=== PATIENT | female | born 1980 | race Caucasian/White ===

== ENCOUNTER 2016-11-10 21:13 | Emergency (ER) | payer OTHER ==
[~2016-11-10] VITALS: Ht 162.6 cm; Wt 66.9 kg
[~2016-11-10 21:13] MED LIST: MULT-506 PO
[2016-11-10 21:15] VITALS: TEMP 37.1; Ht 162.6 cm; Wt 66.9 kg
[2016-11-10 23:02] LABS: BASO % 0.4 %; BASO ABS # 0.03 K/uL (0-0.2); COMPLETE YES; EOS % 2.9 %; IG% 0.1 %; LYMPH % 36.5 %; LYMPH ABS # 2.81 K/uL (1.2-3.4); MEAN CELL VOLUME 87.8 fL (80-100); MEAN CORPUSCULAR HGB CONC 34.1 g/dl (32-36); MONO % 8.4 %; NEUT % 51.7 %; PLATELET COUNT 265 K/uL (130-400); RED BLOOD COUNT 4.67 M/uL (4.2-5.4)
[2016-11-10 23:06] VITALS: O2SAT 100
[2016-11-10 23:11] LABS: PARTIAL THROMBOPLASTIN RATIO 1.1; PROTHROMBIN TIME (PATIENT) 10.4 SECONDS (9.0-12.0)
--- NOTE | 2016-11-10 23:16 | EMERGENCY ROOM VISIT NOTE ---
History Report prepared by Aydin: Pura Serrano Under the Supervision of: Dr. Garcia Barnett M.D. First contact with patient: 22:27 Chief Complaint: VAGINAL DISCHARGE Stated Complaint: 12 WKS PREG,PAIN W/DISCHARGE History of Present Illness The patient is a 36 year old female who presents to the Emergency Room with complaints of intermittent vaginal discharge for the past 3 days. The patient is /A0. She is currently 12 weeks and has not yet had an ultrasound to confirm the baby's location. She has an appointment with her management instructor next week. Two days ago she developed brown vaginal discharge without any pelvic pain. Yesterday she continued to have painless brown discharge. Today she developed intermittent sharp pelvic pain and red vaginal discharge. She rates her pain as a 4/10 in severity. Source of History: patient Onset: 3 days ago Position: other (vagina) Symptom Intensity: 4/10 Quality: other (bleeding) Timing: intermittent Associated Symptoms: + abdominal pain Review of Systems See HPI for pertinent positives & negatives. A total of 10 systems reviewed and were otherwise negative. Past Medical & Surgical Medical Problems: (1) Deliver-Single Liveborn (2) No Known Active Medical Problems Family History No pertinent family history Social History Smoking Status: Never Smoker Marital Status: Housing Status: lives with family Current/Historical Medications Scheduled Multivitamin (Multivitamin), 1 TAB PO DAILY Allergies Coded Allergies: No Known Allergies (Unverified , 11/10/16) Physical Exam Vital Signs Date Time Temp Pulse Resp B/P Pulse Ox O2 Delivery O2 Flow Rate FiO2 11/11/16 01:38 72 20 115/74 98 11/10/16 23:44 73 11/10/16 23:38 69 22 111/68 100 Room Air 11/10/16 23:06 100 Room Air 11/10/16 21:15 37.1 87 20 149/95 100 Room Air Physical Exam GENERAL: Patient is a healthy-appearing well-nourished 36 year old female. HEAD: Normocephalic atraumatic EYES: Ocular movements intact pupils equal and react to light OROPHARYNX mucous membranes are moist no exudates present no erythema or edema present NECK: Supple no nuchal rigidity CHEST: Good equal expansion LUNGS: Clear and equal to auscultation CARDIAC: Normal S1 and S2 ABDOMEN: Soft nontender no guarding BACK: No CVA tenderness EXTREMITIES: No pain upon palpation normal muscle strength in all groups no clubbing cyanosis or edema NEURO: Patient is following commands is answering questions appropriately. Alert and oriented x3 Cranial Nerves 2-12 grossly intact Medical Decision & Procedures ER Provider Diagnostic Interpretation: FIRST TRIMESTER OBSTETRICAL ULTRASOUND. CLINICAL HISTORY: and vaginal bleeding COMPARISON STUDY: No previous studies for comparison. FINDINGS: The patient refused endovaginal scanning. The maternal ovaries were unremarkable in appearance.] Intrauterine gestation was visualized in the crown-rump length of 15 mm. This corresponds to an estimated postmenstrual age of 7 weeks and 6 days. No cardiac activity was demonstrated. Unfortunately patient refused endovaginal scanning. The findings may indicate demise. An endovaginal scan or follow-up transabdominal scan but the considered for confirmation. There is a tiny subchorionic hematoma. IMPRESSION: Intrauterine gestation with estimated postmenstrual age of 7 weeks and 6 days. No cardiac activity was identified on transabdominal scanning. This may indicate demise. An endovaginal scan, or follow-up transabdominal scan may be considered for confirmation. Electronically signed by: Trevor Rodriguez M.D. 11/11/2016 6:54 AM Dictated Date/Time: 11/11/2016 6:51 AM Laboratory Results 11/10/16 22:48 Red Blood Count 4.67, Mean Corpuscular Volume 87.8, Mean Corpuscular Hemoglobin 30.0, Mean Corpuscular Hemoglobin Concent 34.1, Mean Platelet Volume 10.0, Neutrophils (%) (Auto) 51.7, Lymphocytes (%) (Auto) 36.5, Monocytes (%) (Auto) 8.4, Eosinophils (%) (Auto) 2.9, Basophils (%) (Auto) 0.4, Neutrophils # (Auto) 3.98, Lymphocytes # (Auto) 2.81, Monocytes # (Auto) 0.65, Eosinophils # (Auto) 0.22, Basophils # (Auto) 0.03 11/10/16 22:48 Test 11/10/16 21:30 11/10/16 22:28 11/10/16 22:48 Urine Color YELLOW Urine Appearance TURBID (CLEAR) Urine pH 8.5 (4.5-7.5) Urine Specific [place] 1.012 (1.000-1.030) Urine Protein NEG (NEG) Urine Glucose (UA) NEG (NEG) Urine Ketones NEG (NEG) Urine Occult Blood 3+ (NEG) Urine Nitrite NEG (NEG) Urine Bilirubin NEG (NEG) Urine Urobilinogen NEG (NEG) Urine Leukocyte Esterase TRACE (NEG) Urine WBC (Auto) 1-5 /hpf (0-5) Urine RBC (Auto) >30 /hpf (0-4) Urine Hyaline Casts (Auto) 1-5 /lpf (0-5) Urine Epithelial Cells (Auto) >30 /lpf (0-5) Urine Bacteria (Auto) NEG (NEG) Urine Test POS (NEG) White Blood Count 7.70 K/uL (4.8-10.8) Red Blood Count 4.67 M/uL (4.2-5.4) Hemoglobin 14.0 g/dL (12.0-16.0) Hematocrit 41.0 % (37-47) Mean Corpuscular Volume 87.8 fL (80-100) Mean Corpuscular Hemoglobin 30.0 pg (25-34) Mean Corpuscular Hemoglobin Concent 34.1 g/dl (32-36) Platelet Count 265 K/uL (130-400) Mean Platelet Volume 10.0 fL (7.4-10.4) Neutrophils (%) (Auto) 51.7 % Lymphocytes (%) (Auto) 36.5 % Monocytes (%) (Auto) 8.4 % Eosinophils (%) (Auto) 2.9 % Basophils (%) (Auto) 0.4 % Neutrophils # (Auto) 3.98 K/uL (1.4-6.5) Lymphocytes # (Auto) 2.81 K/uL (1.2-3.4) Monocytes # (Auto) 0.65 K/uL (0.11-0.59) Eosinophils # (Auto) 0.22 K/uL (0-0.5) Basophils # (Auto) 0.03 K/uL (0-0.2) RDW Standard Deviation 41.0 fL (36.4-46.3) RDW Coefficient of Variation 12.8 % (11.5-14.5) Immature Granulocyte % (Auto) 0.1 % Immature Granulocyte # (Auto) 0.01 K/uL (0.00-0.02) Prothrombin Time 10.4 SECONDS (9.0-12.0) Prothromb Time International Ratio 1.0 (0.9-1.1) Activated Partial Thromboplast Time 27.5 SECONDS (21.0-31.0) Partial Thromboplastin Ratio 1.1 Anion Gap 8.0 mmol/L (3-11) Est Creatinine Clear Calc Drug Dose 124.3 ml/min Estimated GFR () 137.8 Estimated GFR (Non- 118.9 BUN/Creatinine Ratio 22.2 (10-20) Calcium Level 9.3 mg/dl (8.5-10.1) Total Bilirubin 0.3 mg/dl (0.2-1) Aspartate Amino Transf (AST/SGOT) 8 U/L (15-37) Alanine Aminotransferase (ALT/SGPT) 20 U/L (12-78) Alkaline Phosphatase 52 U/L (45-117) Total Protein 8.1 gm/dl (6.4-8.2) Albumin 4.0 gm/dl (3.4-5.0) Globulin 4.1 gm/dl (2.5-4.0) Albumin/Globulin Ratio 1.0 (0.9-2) Human Chorionic Gonadotropin, Quant 3554 mIU/mL ED Course 2227: Past medical records reviewed. The patient was evaluated in room B6. A complete history and physical examination was performed. Medical Decision Differential diagnosis: Etiologies such as ectopic , dysfunction uterine bleeding, bleeding dyscrasia, trauma, infection, as well as others were entertained. This is a 36-year-old female who presents emergency department complaining of brownish discharge that is turned to a reddish discharge today along with some suprapubic cramping. The patient believes she is 12 weeks however her beta hCG does not reflect this number. In addition there is no cardiac activity and I believe this to be a demise. The patient's blood type is positive. Serial abdominal examinations were performed of the patient and at no time did the patient exhibit surgical abdomen. Based on these findings I feel that the patient can be safely discharged home as she is not having any heavy bleeding. She does have follow-up with obstetrics this week. I contacted case management to try get the patient's appointment moved up. Patient and were in agreement with treatment plan. Impression Primary Impression: Vaginal discharge Additional Impression: Incomplete miscarriage Scribe Attestation The scribe's documentation has been prepared under my direction and personally reviewed by me in its entirety. I confirm that the note above accurately reflects all work, treatment, procedures, and medical decision making performed by me. Departure Information Dispostion Home / Self-Care Referrals No Doctor, Assigned (PCP) Patient Instructions My [facility] Problem Qualifiers
[2016-11-10 23:19] LABS: BUN/CREATININE RATIO 22.2 (10-20); CALCIUM 9.3 mg/dl (8.5-10.1); CREATININE 0.6 mg/dl (0.60-1.20); POTASSIUM 3.7 mmol/L (3.5-5.1)
[2016-11-11 00:06] LABS: MANUAL MICROSCOPIC REQUIRED? NO; REVIEW REQ? NO; URINE APPEARANCE TURBID (CLEAR); URINE BILIRUBIN NEG (NEG); URINE COLOR YELLOW; URINE EPITHELIAL CELL AUTO >30 /lpf (0-5); URINE NITRITE NEG (NEG); URINE PH 8.5 (4.5-7.5); URINE SPECIFIC GRAVITY 1.012 (1.000-1.030); UROBILINOGEN NEG (NEG)
[2016-11-11 01:38] VITALS: BP 115/74; PULSE 72; O2SAT 98
--- NOTE | 2016-11-11 06:55 | DIAGNOSTIC IMAGING REPORT ---
FIRST TRIMESTER OBSTETRICAL ULTRASOUND. CLINICAL HISTORY: and vaginal bleeding COMPARISON STUDY: No previous studies for comparison. FINDINGS: The patient refused endovaginal scanning. The maternal ovaries were unremarkable in appearance.] Intrauterine gestation was visualized in the crown-rump length of 15 mm. This corresponds to an estimated postmenstrual age of 7 weeks and 6 days. No cardiac activity was demonstrated. Unfortunately patient refused endovaginal scanning. The findings may indicate demise. An endovaginal scan or follow-up transabdominal scan but the considered for confirmation. There is a tiny subchorionic hematoma. IMPRESSION: Intrauterine gestation with estimated postmenstrual age of 7 weeks and 6 days. No cardiac activity was identified on transabdominal scanning. This may indicate demise. An endovaginal scan, or follow-up transabdominal scan may be considered for confirmation. Electronically signed by: Trevor Rodriguez M.D. 11/11/2016 6:54 AM Dictated Date/Time: 11/11/2016 6:51 AM
== END 2016-11-11 01:42 | disposition home or self-care (01) ==
LOC: C.EDB 21:14
DX: O03.4 Incomplete spontaneous abortion without complication (principal); Z3A.01 Less than 8 weeks gestation of pregnancy

== ENCOUNTER 2016-11-12 01:44 | Emergency (ER) | payer OTHER ==
[~2016-11-12] VITALS: Ht 160 cm; Wt 60.0 kg
[2016-11-12 01:47] VITALS: Ht 160 cm; Wt 60.0 kg
[2016-11-12 02:00] VITALS: TEMP 36.9
[2016-11-12 02:10] VITALS: O2SAT 98
[2016-11-12] MEDS ORDERED: ONDANSETRON INJ 2 MG/ML 2 ML VIAL IV STA (02:19)
[2016-11-12] MEDS ORDERED: MoRPHine SULFATE 4 MG/ML 1 ML CARP\\VIAL IV STA (02:19)
[2016-11-12] MEDS ORDERED: SODIUM CHLORIDE 0.9% 1000ML 2,000 ML IV STA (02:19)
[2016-11-12 02:42] LABS: BASO % 0.4 %; BASO ABS # 0.04 K/uL (0-0.2); COMPLETE YES; HEMATOCRIT 35.8 % (37-47); IG% 0.1 %; LYMPH % 35.7 %; LYMPH ABS # 3.51 K/uL (1.2-3.4); MEAN CELL VOLUME 85.6 fL (80-100); MEAN CORPUSCULAR HEMOGLOBIN 29.2 pg (25-34); MEAN CORPUSCULAR HGB CONC 34.1 g/dl (32-36); MEAN PLATELET VOLUME 9.8 fL (7.4-10.4); MONO % 8.1 %; NEUT % 53.7 %; PLATELET COUNT 249 K/uL (130-400); RED BLOOD COUNT 4.18 M/uL (4.2-5.4); WHITE BLOOD COUNT 9.84 K/uL (4.8-10.8)
[2016-11-12 02:57] LABS: PARTIAL THROMBOPLASTIN RATIO 0.9; PROTHROMBIN TIME (PATIENT) 10.8 SECONDS (9.0-12.0)
[2016-11-12 03:02] LABS: BUN/CREATININE RATIO 18.1 (10-20); CALCIUM 8.9 mg/dl (8.5-10.1); CREATININE 0.74 mg/dl (0.60-1.20); POTASSIUM 3.4 mmol/L (3.5-5.1)
[2016-11-12 03:04] LABS: ALB/GLOB RATIO 1.1 (0.9-2)
--- NOTE | 2016-11-12 04:32 | EMERGENCY ROOM VISIT NOTE ---
History First contact with patient: 02:01 Chief Complaint: ED VAG BLEEDING Stated Complaint: MISCARRAGE History of Present Illness The patient is a 36 year old female who presents to the Emergency Room with complaints of heavy vaginal bleeding and pain for the past few hours was seen here yesterday for threatened miscarriage. This is the patient's seventh . She is 4 living children. She thinks she is 12 weeks along. She follows at [facility]. She is appointment today with OB. Patient states she's got to 6 pads within 2 hours. She states she had a blood sensation with her last delivery. Patient denies chest pain, dyspnea, fever, chills, cough, congestion. Patient states she feels extremely weak. Review of Systems See HPI for pertinent positives & negatives. A total of 10 systems reviewed and were otherwise negative. Past Medical/Surgical History Medical Problems: (1) Deliver-Single Liveborn (2) No Known Active Medical Problems Family History No pertinent family history Social History Smoking Status: Never Smoker Smokeless Tobacco Use: No Drug Use: none Marital Status: Housing Status: lives with family Current/Historical Medications Scheduled Multivitamin (Multivitamin), 1 TAB PO DAILY Allergies Coded Allergies: No Known Allergies (Unverified , 11/12/16) Physical Exam Vital Signs Date Time Temp Pulse Resp B/P Pulse Ox O2 Delivery O2 Flow Rate FiO2 11/12/16 03:24 74 16 93/49 97 Room Air 11/12/16 02:10 98 Room Air 11/12/16 02:09 75 11/12/16 02:00 36.9 72 22 117/72 97 Room Air 11/12/16 01:47 36.8 85 18 117/75 100 Room Air Physical Exam VITALS: Vitals are noted on the nurse's note and reviewed by myself. Vital signs stable. GENERAL: Pleasant tearful female, in no acute distress, nondiaphoretic, well- developed well-nourished. SKIN: Capillary reflex less than 2 seconds. HEENT: Normocephalic. PERRLA. EOMI. Nares patent. Mucous membranes moist. Neck is supple without nuchal rigidity. HEART: Regular rate and rhythm without murmurs gallops or rubs. LUNGS: Clear to auscultation bilaterally without wheezes, rales or rhonchi. No retractions or accessory muscle use. ABDOMEN: Positive bowel sounds x 4. Normal tympanic percussion. Soft, nontender, without masses or organomegaly. Kam sign negative. No guarding or rebound tenderness. exam: Normal external genitalia, copious metal blood in the vault with open os and products of conception present that was sent to lab for pathology. Manager Strategy & Account present. MUSCULOSKELETAL: No gross musculoskeletal defects. NEURO: Patient was alert and oriented to person place and time. Normal sensation to light and sharp touch. No focal neurological deficits. Medical Decision & Procedures Laboratory Results 11/12/16 02:00 Red Blood Count 4.18, Mean Corpuscular Volume 85.6, Mean Corpuscular Hemoglobin 29.2, Mean Corpuscular Hemoglobin Concent 34.1, Mean Platelet Volume 9.8, Neutrophils (%) (Auto) 53.7, Lymphocytes (%) (Auto) 35.7, Monocytes (%) (Auto) 8.1, Eosinophils (%) (Auto) 2.0, Basophils (%) (Auto) 0.4, Neutrophils # (Auto) 5.28, Lymphocytes # (Auto) 3.51, Monocytes # (Auto) 0.80, Eosinophils # (Auto) 0.20, Basophils # (Auto) 0.04 11/12/16 02:00 Test 11/12/16 02:00 White Blood Count 9.84 K/uL (4.8-10.8) Red Blood Count 4.18 M/uL (4.2-5.4) Hemoglobin 12.2 g/dL (12.0-16.0) Hematocrit 35.8 % (37-47) Mean Corpuscular Volume 85.6 fL (80-100) Mean Corpuscular Hemoglobin 29.2 pg (25-34) Mean Corpuscular Hemoglobin Concent 34.1 g/dl (32-36) Platelet Count 249 K/uL (130-400) Mean Platelet Volume 9.8 fL (7.4-10.4) Neutrophils (%) (Auto) 53.7 % Lymphocytes (%) (Auto) 35.7 % Monocytes (%) (Auto) 8.1 % Eosinophils (%) (Auto) 2.0 % Basophils (%) (Auto) 0.4 % Neutrophils # (Auto) 5.28 K/uL (1.4-6.5) Lymphocytes # (Auto) 3.51 K/uL (1.2-3.4) Monocytes # (Auto) 0.80 K/uL (0.11-0.59) Eosinophils # (Auto) 0.20 K/uL (0-0.5) Basophils # (Auto) 0.04 K/uL (0-0.2) RDW Standard Deviation 38.9 fL (36.4-46.3) RDW Coefficient of Variation 12.5 % (11.5-14.5) Immature Granulocyte % (Auto) 0.1 % Immature Granulocyte # (Auto) 0.01 K/uL (0.00-0.02) Prothrombin Time 10.8 SECONDS (9.0-12.0) Prothromb Time International Ratio 1.0 (0.9-1.1) Activated Partial Thromboplast Time 23.8 SECONDS (21.0-31.0) Partial Thromboplastin Ratio 0.9 Anion Gap 14.0 mmol/L (3-11) Est Creatinine Clear Calc Drug Dose 88.6 ml/min Estimated GFR () 122.5 Estimated GFR (Non- 105.7 BUN/Creatinine Ratio 18.1 (10-20) Calcium Level 8.9 mg/dl (8.5-10.1) Total Bilirubin 0.4 mg/dl (0.2-1) Aspartate Amino Transf (AST/SGOT) 9 U/L (15-37) Alanine Aminotransferase (ALT/SGPT) 19 U/L (12-78) Alkaline Phosphatase 48 U/L (45-117) Total Protein 7.4 gm/dl (6.4-8.2) Albumin 3.8 gm/dl (3.4-5.0) Globulin 3.6 gm/dl (2.5-4.0) Albumin/Globulin Ratio 1.1 (0.9-2) Human Chorionic Gonadotropin, Quant 1913 mIU/mL Medications Administered Medications (Trade) Dose Ordered Sig/Krissy Route Start Time Stop Time Status Last Admin Dose Admin Sodium Chloride (Nss 1000ml) 2,000 ml @ 999 mls/hr Q2H1M STAT IV 11/12/16 02:19 11/12/16 04:19 DC 11/12/16 02:27 999 MLS/HR Morphine Sulfate (MoRPHine SULFATE INJ) 4 mg NOW STAT IV 11/12/16 02:19 11/12/16 02:23 DC 11/12/16 02:27 4 MG Ondansetron HCl (Zofran Inj) 4 mg NOW STAT IV 11/12/16 02:19 11/12/16 02:23 DC 11/12/16 02:27 4 MG ED Course Prior records/ancillary studies reviewed. Triage Nursing notes reviewed. Additional history obtained from the family. The patient's history was concerning for vaginal bleeding and abdominal pain. Differential diagnosis: Etiologies such as threatened miscarriage, incomplete miscarriage, septic miscarriage, missed miscarriage ectopic , dysfunction uterine bleeding , bleeding dyscrasia, trauma, infection, as well as others were entertained. Physical examination: As above. Vitals signs revealed stable ER treatment provided: IV fluids, Zofran, morphine On reassessment the patient felt better. Diagnostic interpretation by me: The labs revealed the patient to the Rh A+ . CBC, coagulation studies, and chemistries were unremarkable. Quantitative hCG was 1913 which is lower from yesterday's quad Imaging studies: Ultrasound as above US OB 1st TRIMESTER: Compared to OB ultrasound 11/10/2016 No evidence of intrauterine gestation, likely due to recent spontaneous . Thickened, heterogeneous endometrium. There is a focal heterogeneously hypoechoic endometrial lesion measuring approximately 1.7 centimeters. There is abnormal endometrial vascular flow. Findings are likely due to retained products of conception. Continued followup with beta-hCG and ultrasound would be useful. The ovaries are within normal limits bilaterally. No free fluid. Radiologist: Debora Cullen M.D. Consultation: A consultation was placed with the supervisor pole yard physician, Dr Ramesh. The case was discussed and diagnostics were reviewed. He recommends discharge and follow-up today in a few hours as scheduled with OB This appears to be consistent with incomplete miscarriage. Patient was neurovascularly and neurologically intact. Stable vital signs. Stable H&H. She is an appointment in a few hours with OB. She is advised to keep this. She is advised to return to the ER me for heavy bleeding, fevers, vomiting, worsening signs or symptoms or as needed. By the evaluation outlined above emergent etiologies such as bleeding dyscrasia, ectopic , trauma, as well as others were deemed relatively unlikely. The pt informed about the findings as listed above. All questions were answered and pleased with the treatment. Return instructions were outlined and the patient was discharged in stable condition. Referral: The patient was referred to today as scheduled for follow-up for a recheck of her current condition. Medical Decision as above Impression Primary Impression: Incomplete miscarriage Departure Information Dispostion Home / Self-Care Condition GOOD Referrals Tori Baker DO (PCP) Patient Instructions My [facility] Additional Instructions Acetaminophen(Tylenol) may be used for fever or pain. Use 1000mg every six hours as needed. Avoid using more than 3000mg in a 24 hour period. Rest and drink plenty of fluids as tolerated. Continue current medications. Light activity only. Return to the ER immediately for worsening or persistent heavy vaginal bleeding , abdominal pain, vomiting, fevers, chest pains, difficulty breathing, worsening of your condition, or as needed. Follow up with today as scheduled in a few hours with your OB for a recheck of your current condition.
[2016-11-12] MEDS ORDERED: OXYCODONE IR HOME PACK PO ONE (04:45)
[2016-11-12] MEDS ORDERED: ONDANSETRON HOME PACK 4MG OD TAB PO ONE (04:45)
[2016-11-12 04:46] VITALS: BP 97/61; PULSE 79; O2SAT 100
--- NOTE | 2016-11-12 06:59 | DIAGNOSTIC IMAGING REPORT ---
PELVIC ULTRASOUND CLINICAL HISTORY: Miscarriage. Increased vaginal bleeding and cramping. COMPARISON STUDY: ultrasound November 10, 2016. TECHNIQUE: Transabdominal and transvaginal sonography of the pelvis was performed. FINDINGS: The endometrium is thickened, measuring 2.9 cm in thickness. The endometrium is heterogeneous. Within the left aspect of the endometrium within the fundus, there is a 1.7 cm complex abnormality with increased vascularity. A normal-appearing gestational sac is not identified. The appearance is changed since exam of November 10, 2016. The ovaries are sonographically normal. No free fluid was identified. Color flow is identified within each ovary. IMPRESSION: 1. Thickened endometrium containing a 1.7 cm mixed echogenicity partially cystic endometrial abnormality with the left aspect of the fundus. A normal-appearing intrauterine gestational sac is not identified and the appearance has significantly changed since exam of November 10, 2016 consistent with spontaneous . The fetus and gestational sac shown on prior exam are no longer visualized. Findings on this study suggest retained products of conception. 2. Normal sonographic appearance of the ovaries. Electronically signed by: Ezequiel Augustin M.D. 11/12/2016 6:57 AM Dictated Date/Time: 11/12/2016 6:51 AM
== END 2016-11-12 04:48 | disposition home or self-care (01) ==
LOC: C.EDB 01:45 → C.EDA 04:48
DX: O03.30 Unspecified complication following incomplete spontaneous abortion (principal)

== ENCOUNTER → 2016-11-19 | Outpatient (CLI) | payer OTHER ==
[~2016-11-19] MED LIST changes: +CYCL10TA6 PO; +OXYC-57 PO
== END | disposition home or self-care (01) ==
LOC: C.LAB1850 09:33
PROVIDERS: ATTEND Obstetrics & Gynecology
DX: O03.9 Complete or unspecified spontaneous abortion without complication (principal)

== ENCOUNTER → 2016-12-04 | Outpatient (CLI) | payer OTHER | END | disposition home or self-care (01) | LOC: C.LAB1850 12:30 | PROVIDERS: ATTEND Obstetrics & Gynecology | DX: O03.9 Complete or unspecified spontaneous abortion without complication (principal) ==

== ENCOUNTER 2017-04-12 10:09 | Emergency (ER) | payer OTHER ==
[~2017-04-12] VITALS: Ht 162.6 cm; Wt 64.4 kg
[~2017-04-12 10:09] MED LIST changes: -CYCL10TA6 PO; -OXYC-57 PO
[2017-04-12 10:26] VITALS: TEMP 36.9; Ht 162.6 cm; Wt 64.4 kg
[2017-04-12] MEDS ORDERED: CYCLOBENZAPRINE HCL 5 MG TAB PO STA (10:34)
[2017-04-12] MEDS ORDERED: IBUPROFEN 600 MG TAB PO STA (10:34)
--- NOTE | 2017-04-12 11:02 | EMERGENCY ROOM VISIT NOTE ---
History Report prepared by Aydin: Leif Du Under the Supervision of: Dr. Garcia Barnett M.D. First contact with patient: 10:30 Chief Complaint: NECK PAIN Stated Complaint: NECK PAIN History of Present Illness The patient is a 36 year old female who presents to the Emergency Room with complaints of constant neck pain that started yesterday. She rates her pain as a 6/10 in severity. The patient states that she started to experience a headache and neck pain that radiated from the back of her head to her shoulder. She reports that she has had headaches in the past, but denies any as severe as her current headache. The patient states that the pain is worsened when she turns her head to the left. She admits that she took Tylenol for her pain and states that her last dose was at 0500 this morning. The patient denies any injury or accident that could have caused this pain. Source of History: patient Onset: yesterday Position: neck Symptom Intensity: 6/10 Timing: constant Modifying Factors (Relieving): tylenol Associated Symptoms: + headache Review of Systems See HPI for pertinent positives & negatives. A total of 10 systems reviewed and were otherwise negative. Past Medical & Surgical Medical Problems: (1) Deliver-Single Liveborn (2) No Known Active Medical Problems Family History No pertinent family history Social History Smoking Status: Never Smoker Drug Use: none Marital Status: Housing Status: lives with family Current/Historical Medications Scheduled Cyclobenzaprine Hcl (Flexeril), 10 MG PO TID Scheduled PRN Oxycodone/Acetaminophen 5MG/325MG (Percocet 5MG/325MG), 1-2 TAB PO Q4H PRN for Pain Allergies Coded Allergies: No Known Allergies (Unverified , 04/12/17) Physical Exam Vital Signs Date Time Temp Pulse Resp B/P (MAP) Pulse Ox O2 Delivery O2 Flow Rate FiO2 04/12/17 11:54 72 16 127/68 98 Room Air 04/12/17 10:26 36.9 88 18 128/79 99 Room Air Physical Exam GENERAL: Patient is a healthy-appearing well-nourished 36 year old. HEAD: Normocephalic atraumatic EYES: Ocular movements intact pupils equal and react to light OROPHARYNX mucous membranes are moist no exudates present no erythema or edema present NECK: Supple no nuchal rigidity CHEST: Good equal expansion LUNGS: Clear and equal to auscultation CARDIAC: Normal S1 and S2 ABDOMEN: Soft nontender no guarding BACK: No CVA tenderness. Trapezius muscle tender. No evidence of meningitis or encephalitis. EXTREMITIES: No pain upon palpation normal muscle strength in all groups no clubbing cyanosis or edema NEURO: Patient is following commands and answering questions appropriately. Alert and oriented x3 Cranial Nerves 2-12 grossly intact Medical Decision & Procedures ER Provider Diagnostic Interpretation: CT results as stated below per my review and radiologist interpretation: C-SPINE ROUTINE 4 OR 5 VIEWS CLINICAL HISTORY: Neck pain. COMPARISON STUDY: No previous studies for comparison. FINDINGS: Alignment of the cervical spine is anatomic. Vertebral body heights are maintained. There is no fracture or suspicious lesion. Disc spaces are preserved. There is mild endplate osteophytosis at C6-C7. Facet joints are intact. Bony neural foramen are patent. IMPRESSION: 1. No cervical spine fracture. 2. Minimal endplate osteophytosis at C6-C7. Preserved disc spaces. Electronically signed by: Ezequiel Augustin M.D. 04/12/2017 11:40 AM Dictated Date/Time: 04/12/2017 11:39 AM Medications Administered Medications (Trade) Dose Ordered Sig/Krissy Route Start Time Stop Time Status Last Admin Dose Admin Ibuprofen (Motrin Tab) 600 mg NOW STAT PO 04/12/17 10:34 04/12/17 10:35 DC 04/12/17 10:34 600 MG Cyclobenzaprine HCl (Flexeril Tab) 10 mg NOW STAT PO 04/12/17 10:34 04/12/17 10:35 DC 04/12/17 10:34 10 MG ED Course 1026: Past medical records reviewed. The patient was evaluated in room B07. A complete history and physical examination was performed. 1034: Flexeril Tab 10 mg PO, Ibuprofen 600 mg PO. 1150: Upon reexamination the patient is resting comfortably. I discussed results and treatment plan with the patient. She verbalizes agreement and understanding. The patient is ready for discharge. Medical Decision The differential diagnosis includes but is not limited to: etiologies such as fracture, dislocation, neurovascular compromise, compartment syndrome, soft tissue injury, as well as others were entertained. Medication Reconciliation: I attest that I have personally reviewed the patient' s current medication list Blood Pressure Screening: Patient was found to have normal blood pressure on screening and does not require follow up. This is a 36-year-old female who presents emergency department complaining of spasm to her left neck. The patient was given ibuprofen in the emergency department along with Flexeril repeat examination revealed much improvement the patient's symptoms. I do believe that this patient can be safely discharged home she has no evidence of meningitis encephalitis on examination. I stressed the need for follow-up with orthopedics if she is continuing to have the neck pain. Patient was in agreement with the treatment plan. Medication Reconcilliation Current Medication List: was personally reviewed by me Blood Pressure Screening Patient's blood pressure: Normal blood pressure Impression Primary Impression: Muscle spasm Scribe Attestation The scribe's documentation has been prepared under my direction and personally reviewed by me in its entirety. I confirm that the note above accurately reflects all work, treatment, procedures, and medical decision making performed by me. Departure Information Dispostion Home / Self-Care Prescriptions Oxycodone/Acetaminophen 5MG/325MG (PERCOCET 5MG/325MG) Tab 1-2 TAB PO Q4H Y for Pain, #14 TAB Prov: Garcia Barnett MD 04/12/17 Cyclobenzaprine Hcl (FLEXERIL) 10 Mg Tab 10 MG PO TID, #21 TAB Prov: Garcia Barnett MD 04/12/17 Referrals No Doctor, Assigned (PCP) Forms HOME CARE DOCUMENTATION FORM, IMPORTANT VISIT INFORMATION, WORK / SCHOOL INSTRUCTIONS Patient Instructions ED Spasm Muscle, My [facility], Neck Probs Additional Instructions Follow up with DR Lo's office for continued neck pain You received narcotic or benzodiazepene medication while in the emergency room today. Do not drive, operate heavy machinery, or drink alcohol under the influence of this medication. Take 600 mg Ibuprofen every 6 hours Take Flexeril as directed Take Percocet for breakthrough pain You have been examined and treated today on an emergency basis only. This is not a substitute for, or an effort to provide, complete comprehensive medical care. It is impossible to recognize and treat all injuries or illnesses in a single emergency department visit. It is therefore important that you follow up closely with Dr Baker. Call as soon as possible for an appointment. Thank you for your time and consideration. I look forward to speaking with you again soon. Please don't hesitate to call us if you have any questions.
--- NOTE | 2017-04-12 11:41 | DIAGNOSTIC IMAGING REPORT ---
C-SPINE ROUTINE 4 OR 5 VIEWS CLINICAL HISTORY: Neck pain. COMPARISON STUDY: No previous studies for comparison. FINDINGS: Alignment of the cervical spine is anatomic. Vertebral body heights are maintained. There is no fracture or suspicious lesion. Disc spaces are preserved. There is mild endplate osteophytosis at C6-C7. Facet joints are intact. Bony neural foramen are patent. IMPRESSION: 1. No cervical spine fracture. 2. Minimal endplate osteophytosis at C6-C7. Preserved disc spaces. Electronically signed by: Ezequiel Augustin M.D. 04/12/2017 11:40 AM Dictated Date/Time: 04/12/2017 11:39 AM
[2017-04-12 11:54] VITALS: BP 127/68; PULSE 72; O2SAT 98
[2017-04-12] MEDS ORDERED: OXYC-57 PO (12:01)
[2017-04-12] MEDS ORDERED: CYCL10TA6 PO (12:01)
== END 2017-04-12 12:13 | disposition home or self-care (01) ==
LOC: C.EDB 10:10
DX: M62.838 Other muscle spasm (principal)

== ENCOUNTER 2017-08-28 13:55 | Observation (INO) | payer OTHER ==
[2017-08-28] VITALS (7 sets, daily range): BP systolic 91–122; BP diastolic 51–68; PULSE 64–81; TEMP 36.3–36.7; O2SAT 94–100; Ht 162.6 cm; Wt 64.6 kg
[~2017-08-28] VITALS: Ht 162.6 cm; Wt 64.6 kg
[~2017-08-28 13:55] MED LIST changes: -MULT-506 PO; +OXYC-57 PO
[2017-08-28] MEDS ORDERED: MoRPHine SULFATE 10 MG/ML CARP/VIAL IV STA (14:22)
[2017-08-28] MEDS ORDERED: ONDANSETRON INJ 2 MG/ML 2 ML VIAL IV STA (14:22)
[2017-08-28] MEDS ORDERED: MULT-1027 PO (14:26)
[2017-08-28] MEDS ORDERED: OPTIRAY 320 IV PRN (14:30)
[2017-08-28] MEDS ORDERED: MoRPHine SULFATE 2 MG/ML CARP ONE (14:36)
[2017-08-28] MEDS ORDERED: MoRPHine SULFATE 4 MG/ML 1 ML CARP\\VIAL ONE (14:36)
[2017-08-28 14:43] LABS: BASO % 0.3 %; BASO ABS # 0.03 K/uL (0-0.2); COMPLETE YES; EOS % 1.7 %; HEMATOCRIT 39.6 % (37-47); IG% 0.2 %; LYMPH % 24.8 %; LYMPH ABS # 2.35 K/uL (1.2-3.4); MEAN CELL VOLUME 87.2 fL (80-100); MEAN CORPUSCULAR HGB CONC 32.1 g/dl (32-36); MEAN PLATELET VOLUME 9.9 fL (7.4-10.4); MONO % 8.2 %; NEUT % 64.8 %; PLATELET COUNT 251 K/uL (130-400); RED BLOOD COUNT 4.54 M/uL (4.2-5.4); WHITE BLOOD COUNT 9.46 K/uL (4.8-10.8)
[2017-08-28 15:02] LABS: CREATININE 0.69 mg/dl (0.60-1.20)
[2017-08-28 15:03] LABS: BUN/CREATININE RATIO 13.6 (10-20); CALCIUM 9.2 mg/dl (8.5-10.1); POTASSIUM 3.9 mmol/L (3.5-5.1)
[2017-08-28 15:32] LABS: URINE APPEARANCE CLOUDY (CLEAR); URINE BILIRUBIN NEG (NEG); URINE COLOR YELLOW; URINE EPITHELIAL CELL AUTO >30 /lpf (0-5); URINE NITRITE NEG (NEG); URINE SPECIFIC GRAVITY 1.012 (1.000-1.030); UROBILINOGEN NEG (NEG); ZZUR CULT IF INDIC CLEAN CATCH NO
[2017-08-28 15:41] LABS: MANUAL MICROSCOPIC REQUIRED? NO; REVIEW REQ? NO
--- NOTE | 2017-08-28 16:57 | DIAGNOSTIC IMAGING REPORT ---
CT SCAN OF THE ABDOMEN AND PELVIS WITH IV CONTRAST CLINICAL HISTORY: Right lower quadrant abdominal pain. COMPARISON STUDY: Abdominal MRI dated 06/11/1714. TECHNIQUE: Following the IV administration of 91 cc of Optiray 320, CT scan of the abdomen and pelvis is performed from the lung bases to the proximal femora. Images are reviewed in the axial, sagittal, and coronal planes. IV contrast was administered without complication. A dose lowering technique was utilized adhering to the principles of ALARA. CT DOSE: 285.89 mGy.cm FINDINGS: Lung bases: The heart is normal in size and without pericardial effusion. The lung bases are clear. Liver: The contrast-enhanced liver is normal in size, contour, and attenuation. There is no intrahepatic biliary ductal dilatation. The hepatic veins and portal veins are patent. Gallbladder: Unremarkable. Spleen: Normal in size and attenuation. Pancreas: Unremarkable. Adrenal glands: Unremarkable. Kidneys: The contrast enhanced kidneys are normal in size and without hydronephrosis. The kidneys enhance symmetrically. Abdominal vasculature: The abdominal aorta is normal in course and caliber. Bowel: The small bowel and colon are normal in course and caliber. The appendix is distended and fluid-filled, measuring up to 9 mm in diameter. The appendiceal wall is thickened and hyperemic, and there is periappendiceal fluid and inflammation. The appearance is consistent with acute appendicitis, and this is best seen on axial image #240. There is no evidence of abscess. Peritoneum: There is no intraperitoneal free air or abdominal ascites. There is a fat-containing umbilical hernia. Lymphadenopathy: None. Pelvic viscera: The bladder, uterus, and adnexa are normal as visualized. Bilateral ovarian follicles are observed. Skeletal structures: No lytic or blastic lesions are seen. IMPRESSION: Findings are consistent with acute appendicitis. There is no evidence of abscess or perforation. Electronically signed by: Gómez Blandon M.D. 08/28/2017 4:55 PM Dictated Date/Time: 08/28/2017 4:52 PM
--- NOTE | 2017-08-28 17:32 | EMERGENCY ROOM VISIT NOTE ---
History First contact with patient: 14:13 Chief Complaint: ABDOMINAL PAIN Stated Complaint: ABD PAIN Nursing Triage Summary: abdominal pain started 2 days ago. vomitied x's 1 yesterday. having regular bowel movements History of Present Illness The patient is a 37 year old female who presents to the Emergency Room with complaints of lower abdominal pain which started last evening. The patient states she had one episode of vomiting yesterday. She continues to be nauseated and complaining of pain in the lower abdomen which she rates at a 6 out of 10. The patient states her bowel movements have been normal. The patient denies any urinary symptoms of frequency, urgency, dysuria or hematuria. The patient denies any prior surgeries to her abdomen. The patient denies any fever, chest pain or shortness of breath. The patient denies any history of kidney stones or any family history of kidney stones. The patient last ate at 9:30 this morning. Review of Systems 10 system review was performed and was negative unless stated otherwise history of present illness. Past Medical/Surgical History Medical Problems: (1) Deliver-Single Liveborn (2) No Known Active Medical Problems Family History No pertinent family history Social History Smoking Status: Never Smoker Drug Use: none Marital Status: Housing Status: lives with family Occupation Status: unemployed Current/Historical Medications Scheduled Multiple Vitamin (Multi Vitamin), 1 TAB PO DAILY Allergies Coded Allergies: No Known Allergies (Unverified , 08/28/17) Physical Exam Vital Signs Date Time Temp Pulse Resp B/P (MAP) Pulse Ox O2 Delivery O2 Flow Rate FiO2 08/28/17 17:02 76 107/65 100 Room Air 08/28/17 15:13 80 116/69 100 Room Air 08/28/17 13:59 36.9 82 18 110/72 99 Room Air Physical Exam GENERAL: 37-year-old female appears in no acute distress. MENTAL Status: Alert and oriented 3. MOUTH: Mucosa is moist NECK: Supple, no lymphadenopathy noted. No carotid bruits noted. LUNGS: Clear auscultation without wheezes rales or rhonchi. CARDIAC: Regular rate and rhythm without murmur. Pulses is full and equal throughout. BACK: No CVA tenderness noted. ABDOMEN: Positive bowel sounds all 4 quadrants. Soft, tenderness to palpation in the right lower quadrant otherwise nontender to palpation without organomegaly or masses. No rebound noted. EXTREMITIES: No cyanosis or edema noted. Medical Decision & Procedures ER Provider Diagnostic Interpretation: CT SCAN OF THE ABDOMEN AND PELVIS WITH IV CONTRAST CLINICAL HISTORY: Right lower quadrant abdominal pain. COMPARISON STUDY: Abdominal MRI dated 06/11/1714. TECHNIQUE: Following the IV administration of 91 cc of Optiray 320, CT scan of the abdomen and pelvis is performed from the lung bases to the proximal femora. Images are reviewed in the axial, sagittal, and coronal planes. IV contrast was administered without complication. A dose lowering technique was utilized adhering to the principles of ALARA. CT DOSE: 285.89 mGy.cm FINDINGS: Lung bases: The heart is normal in size and without pericardial effusion. The lung bases are clear. Liver: The contrast-enhanced liver is normal in size, contour, and attenuation. There is no intrahepatic biliary ductal dilatation. The hepatic veins and portal veins are patent. Gallbladder: Unremarkable. Spleen: Normal in size and attenuation. Pancreas: Unremarkable. Adrenal glands: Unremarkable. Kidneys: The contrast enhanced kidneys are normal in size and without hydronephrosis. The kidneys enhance symmetrically. Abdominal vasculature: The abdominal aorta is normal in course and caliber. Bowel: The small bowel and colon are normal in course and caliber. The appendix is distended and fluid-filled, measuring up to 9 mm in diameter. The appendiceal wall is thickened and hyperemic, and there is periappendiceal fluid and inflammation. The appearance is consistent with acute appendicitis, and this is best seen on axial image #240. There is no evidence of abscess. Peritoneum: There is no intraperitoneal free air or abdominal ascites. There is a fat-containing umbilical hernia. Lymphadenopathy: None. Pelvic viscera: The bladder, uterus, and adnexa are normal as visualized. Bilateral ovarian follicles are observed. Skeletal structures: No lytic or blastic lesions are seen. IMPRESSION: Findings are consistent with acute appendicitis. There is no evidence of abscess or perforation. Electronically signed by: Gómez Blandon M.D. 08/28/2017 4:55 PM Dictated Date/Time: 08/28/2017 4:52 PM The status of this report is Signed. Laboratory Results 08/28/17 14:20 Red Blood Count 4.54, Mean Corpuscular Volume 87.2, Mean Corpuscular Hemoglobin 28.0, Mean Corpuscular Hemoglobin Concent 32.1, Mean Platelet Volume 9.9, Neutrophils (%) (Auto) 64.8, Lymphocytes (%) (Auto) 24.8, Monocytes (%) (Auto) 8.2, Eosinophils (%) (Auto) 1.7, Basophils (%) (Auto) 0.3, Neutrophils # (Auto) 6.12, Lymphocytes # (Auto) 2.35, Monocytes # (Auto) 0.78, Eosinophils # (Auto) 0.16, Basophils # (Auto) 0.03 08/28/17 14:20 Test 08/28/17 14:20 08/28/17 15:20 White Blood Count 9.46 K/uL (4.8-10.8) Red Blood Count 4.54 M/uL (4.2-5.4) Hemoglobin 12.7 g/dL (12.0-16.0) Hematocrit 39.6 % (37-47) Mean Corpuscular Volume 87.2 fL (80-100) Mean Corpuscular Hemoglobin 28.0 pg (25-34) Mean Corpuscular Hemoglobin Concent 32.1 g/dl (32-36) Platelet Count 251 K/uL (130-400) Mean Platelet Volume 9.9 fL (7.4-10.4) Neutrophils (%) (Auto) 64.8 % Lymphocytes (%) (Auto) 24.8 % Monocytes (%) (Auto) 8.2 % Eosinophils (%) (Auto) 1.7 % Basophils (%) (Auto) 0.3 % Neutrophils # (Auto) 6.12 K/uL (1.4-6.5) Lymphocytes # (Auto) 2.35 K/uL (1.2-3.4) Monocytes # (Auto) 0.78 K/uL (0.11-0.59) Eosinophils # (Auto) 0.16 K/uL (0-0.5) Basophils # (Auto) 0.03 K/uL (0-0.2) RDW Standard Deviation 46.8 fL (36.4-46.3) RDW Coefficient of Variation 14.8 % (11.5-14.5) Immature Granulocyte % (Auto) 0.2 % Immature Granulocyte # (Auto) 0.02 K/uL (0.00-0.02) Anion Gap 6.0 mmol/L (3-11) Est Creatinine Clear Calc Drug Dose 98.3 ml/min Estimated GFR () 130.7 Estimated GFR (Non- 112.8 BUN/Creatinine Ratio 13.6 (10-20) Calcium Level 9.2 mg/dl (8.5-10.1) Total Bilirubin 0.7 mg/dl (0.2-1) Direct Bilirubin 0.1 mg/dl (0-0.2) Aspartate Amino Transf (AST/SGOT) 7 U/L (15-37) Alanine Aminotransferase (ALT/SGPT) 19 U/L (12-78) Alkaline Phosphatase 69 U/L (45-117) Total Protein 8.2 gm/dl (6.4-8.2) Albumin 3.9 gm/dl (3.4-5.0) Lipase 84 U/L (73-393) Urine Color YELLOW Urine Appearance CLOUDY (CLEAR) Urine pH 6.0 (4.5-7.5) Urine Specific [place] 1.012 (1.000-1.030) Urine Protein NEG (NEG) Urine Glucose (UA) NEG (NEG) Urine Ketones NEG (NEG) Urine Occult Blood NEG (NEG) Urine Nitrite NEG (NEG) Urine Bilirubin NEG (NEG) Urine Urobilinogen NEG (NEG) Urine Leukocyte Esterase TRACE (NEG) Urine WBC (Auto) 1-5 /hpf (0-5) Urine RBC (Auto) 0-4 /hpf (0-4) Urine Hyaline Casts (Auto) 1-5 /lpf (0-5) Urine Epithelial Cells (Auto) >30 /lpf (0-5) Urine Bacteria (Auto) NEG (NEG) Medications Administered Medications (Trade) Dose Ordered Sig/Krissy Route Start Time Stop Time Status Last Admin Dose Admin Ondansetron HCl (Zofran Inj) 4 mg NOW STAT IV 08/28/17 14:22 08/28/17 14:24 DC 08/28/17 14:38 4 MG Morphine Sulfate (MoRPHine SULFATE INJ) 2 mg STK-MED ONCE .ROUTE 08/28/17 14:36 08/28/17 14:37 DC 08/28/17 14:38 2 MG Morphine Sulfate (MoRPHine SULFATE INJ) 4 mg STK-MED ONCE .ROUTE 08/28/17 14:36 08/28/17 14:37 DC 08/28/17 14:39 4 MG ED Course The patient was evaluated. The patient's EMR medication list were reviewed. IV access was obtained. The patient was given morphine 6 mg IV for pain and Zofran 4 mg IV push for nausea. CBC and differential, renal profile, LFTs and lipase levels were ordered. Urinalysis was ordered. Urine for was ordered. CT of the abdomen and pelvis with IV and oral contrast was ordered interpreted by the radiologist as above with findings consistent of acute appendicitis. Labs are reviewed and were unremarkable. White count was normal. Urinalysis revealed just a trace of leukocytes otherwise was negative. Dr. Rollins was consulted. He agreed to come evaluate the patient. Medical Decision Differential diagnoses include reflux, gastritis, gastroenteritis, pancreatitis , cholelithiasis, cholecystitis, appendicitis, mesenteric ischemia, pyelonephritis, urinary tract infection, renal colic, diverticulitis, shingles, bowel obstruction, intussusception, hernia, ovarian torsion, ruptured ovarian cyst, ectopic , . Impression Primary Impression: Appendicitis Departure Information Dispostion Being Evaluated By Surgeon Condition GOOD Referrals No Doctor, Assigned (PCP) Patient Instructions [facility] Problem Qualifiers Primary Impression: Appendicitis Appendicitis type: acute appendicitis Acute appendicitis type: with localized peritonitis Qualified Codes: K35.3 - Acute appendicitis with localized peritonitis
[2017-08-28] MEDS ORDERED: MIDAZOLAM HCL 1 MG/ML 2ML VIAL ONE (17:38)
[2017-08-28] MEDS ORDERED: FENTANYL CITRATE INJ 50 MCG/1 ML 2 ML VIAL ONE ×2 (17:39)
[2017-08-28] MEDS ORDERED: PROPOFOL IV EMULSION 10 MG/ML 20 ML VIAL IV ONE (17:41)
[2017-08-28] MEDS ORDERED: DEXAMETHASONE SOD INJ 4 MG/ML VIAL ONE (17:41)
[2017-08-28] MEDS ORDERED: LIDOCAINE HCL 2% 2 ML VIAL (20MG/ML) ONE (17:41)
[2017-08-28] MEDS ORDERED: ROCURONIUM BROMIDE 10 MG/ML 5 ML VIAL IV ONE (17:41)
[2017-08-28] MEDS ORDERED: GLYCOPYRROLATE INJ 0.2 MG/ML VIAL ONE (17:41)
[2017-08-28] MEDS ORDERED: ONDANSETRON INJ 2 MG/ML 2 ML VIAL ONE (17:41)
[2017-08-28] MEDS ORDERED: NEOSTIGMINE METHYLSULFATE 5 MG/5 ML SYR ONE (17:41)
[2017-08-28] MEDS ORDERED: SUCCINYLCHOLINE CHLORIDE 20 MG/ML 10 ML VIAL IV ONE (17:41)
[2017-08-28] MEDS ORDERED: CEFOXITIN SOD 2 GM VIAL IV STA (17:42)
--- NOTE | 2017-08-28 17:48 | Surgery Consultation ---
Consultation Date of Consultation: Aug 28, 2017. Attending Physician: History of Present Illness The patient is a 37 year old female who presents to the Emergency Room with complaints of lower abdominal pain which started last evening. The patient states she had one episode of vomiting yesterday. She continues to be nauseated and complaining of pain in the lower abdomen which she rates at a 6 out of 10. The patient states her bowel movements have been normal. The patient denies any urinary symptoms of frequency, urgency, dysuria or hematuria. The patient denies any prior surgeries to her abdomen. The patient denies any fever, chest pain or shortness of breath. The patient denies any history of kidney stones or any family history of kidney stones. The patient last ate at 9:30 this morning. I saw pt at ER, I reviewed H/P with pt, pt is still have RLQ pain, pt denies fever, no diarrhea, Past Medical/Surgical History Medical Problems: (1) Appendicitis Status: Acute (2) Incomplete miscarriage Status: Acute (3) Incomplete miscarriage Status: Acute (4) Muscle spasms of neck Status: Acute Family History No pertinent family history Social History Smoking Status: Never Smoker Smokeless Tobacco Use: No Alcohol Use: occasionally Drug Use: none Marital Status: Housing Status: lives with family Occupation Status: unemployed Allergies Coded Allergies: No Known Allergies (Unverified , 08/28/17) Home Medications Scheduled Multiple Vitamin (Multi Vitamin), 1 TAB PO DAILY Current Inpatient Medications Current Inpatient Medications Medications (Trade) Dose Ordered Sig/Krissy Route Start Time Stop Time Status Last Admin Dose Admin Ioversol (Optiray 320) 125 ml UD PRN IV 08/28/17 14:30 09/01/17 14:29 Review of Systems Constitutional: No fever, No chills, No sweats, No weight loss, No weakness, No fatigue, No problem reported Eyes: No worsening of vision, No eye pain, No redness, No discharge, No diplopia, No problem reported ENT: No hearing loss, No unusual epistaxis, No nasal symptoms, No sore throat, No tinnitus, No dental problems, No trouble swallowing, No problem reported Respiratory: No cough, No sputum, No wheezing, No shortness of breath, No dyspnea on exertion, No dyspnea at rest, No hemoptysis, No problem reported Cardiovascular: No chest pain, No orthopnea, No PND, No edema, No claudication , No palpitations, No problem reported Abdomen: + pain, + nausea, + vomiting Musculoskeletal: No joint pain, No muscle pain, No swelling, No calf pain, No problem reported Genitourinary - Female: No dysuria, No urinary frequency, No urinary urgency, No urinary incontinence, No urinary retention, No hematuria, No dysmenorrhea, No menorrhagia, No metrorrhagia, No rash, No vaginal bleeding, No vaginal discharge, No vaginal itching, No vulvodynia, No , No problem reported Neurologic: No memory loss, No paralysis, No weakness, No numbness/tingling, No vertigo, No balance problems, No problem reported Psychiatric: No depression symptoms, No anhedonism, No anxiety, No insomnia, No substance abuse, No problem reported Endocrine: No fatigue, No excessive thirst, No excessive urination, No problem reported Hematologic / Lymphatic: No abnormal bleeding/bruising, No clotting problems, No swollen lymph nodes, No night sweats, No problem reported Physical Exam Date Time Temp Pulse Resp B/P (MAP) Pulse Ox O2 Delivery O2 Flow Rate FiO2 08/28/17 17:02 76 107/65 100 Room Air 08/28/17 15:13 80 116/69 100 Room Air 08/28/17 13:59 36.9 82 18 110/72 99 Room Air General Appearance: WD/WN, + mild distress Head: normocephalic Eyes: normal inspection ENT: normal ENT inspection Neck: supple, no JVD Respiratory/Chest: chest non-tender, lungs clear, normal breath sounds, no respiratory distress Cardiovascular: regular rate, rhythm, no edema, no gallop, no JVD, no murmur Abdomen/GI: normal bowel sounds, soft, no organomegaly, no pulsatile mass, + tenderness (at RLQ, no rebound pain) Extremities/Musculoskelatal: normal inspection, no calf tenderness, normal capillary refill Neurologic/Psych: no motor/sensory deficits, alert, normal mood/affect Skin: normal color, warm/dry, no rash Laboratory Results Last 24 Hours Test 08/28/17 14:20 08/28/17 15:20 White Blood Count 9.46 K/uL Red Blood Count 4.54 M/uL Hemoglobin 12.7 g/dL Hematocrit 39.6 % Mean Corpuscular Volume 87.2 fL Mean Corpuscular Hemoglobin 28.0 pg Mean Corpuscular Hemoglobin Concent 32.1 g/dl Platelet Count 251 K/uL Mean Platelet Volume 9.9 fL Neutrophils (%) (Auto) 64.8 % Lymphocytes (%) (Auto) 24.8 % Monocytes (%) (Auto) 8.2 % Eosinophils (%) (Auto) 1.7 % Basophils (%) (Auto) 0.3 % Neutrophils # (Auto) 6.12 K/uL Lymphocytes # (Auto) 2.35 K/uL Monocytes # (Auto) 0.78 K/uL Eosinophils # (Auto) 0.16 K/uL Basophils # (Auto) 0.03 K/uL RDW Standard Deviation 46.8 fL RDW Coefficient of Variation 14.8 % Immature Granulocyte % (Auto) 0.2 % Immature Granulocyte # (Auto) 0.02 K/uL Sodium Level 134 mmol/L Potassium Level 3.9 mmol/L Chloride Level 101 mmol/L Carbon Dioxide Level 27 mmol/L Anion Gap 6.0 mmol/L Blood Urea Nitrogen 9 mg/dl Creatinine 0.69 mg/dl Est Creatinine Clear Calc Drug Dose 98.3 ml/min Estimated GFR () 130.7 Estimated GFR (Non- 112.8 BUN/Creatinine Ratio 13.6 Random Glucose 93 mg/dl Calcium Level 9.2 mg/dl Total Bilirubin 0.7 mg/dl Direct Bilirubin 0.1 mg/dl Aspartate Amino Transf (AST/SGOT) 7 U/L Alanine Aminotransferase (ALT/SGPT) 19 U/L Alkaline Phosphatase 69 U/L Total Protein 8.2 gm/dl Albumin 3.9 gm/dl Lipase 84 U/L Urine Color YELLOW Urine Appearance CLOUDY Urine pH 6.0 Urine Specific [place] 1.012 Urine Protein NEG Urine Glucose (UA) NEG Urine Ketones NEG Urine Occult Blood NEG Urine Nitrite NEG Urine Bilirubin NEG Urine Urobilinogen NEG Urine Leukocyte Esterase TRACE Urine WBC (Auto) 1-5 /hpf Urine RBC (Auto) 0-4 /hpf Urine Hyaline Casts (Auto) 1-5 /lpf Urine Epithelial Cells (Auto) >30 /lpf Urine Bacteria (Auto) NEG Assessment & Plan CT DOSE: 285.89 mGy.cm FINDINGS: Lung bases: The heart is normal in size and without pericardial effusion. The lung bases are clear. Liver: The contrast-enhanced liver is normal in size, contour, and attenuation. There is no intrahepatic biliary ductal dilatation. The hepatic veins and portal veins are patent. Gallbladder: Unremarkable. Spleen: Normal in size and attenuation. Pancreas: Unremarkable. Adrenal glands: Unremarkable. Kidneys: The contrast enhanced kidneys are normal in size and without hydronephrosis. The kidneys enhance symmetrically. Abdominal vasculature: The abdominal aorta is normal in course and caliber. Bowel: The small bowel and colon are normal in course and caliber. The appendix is distended and fluid-filled, measuring up to 9 mm in diameter. The appendiceal wall is thickened and hyperemic, and there is periappendiceal fluid and inflammation. The appearance is consistent with acute appendicitis, and this is best seen on axial image #240. There is no evidence of abscess. Peritoneum: There is no intraperitoneal free air or abdominal ascites. There is a fat-containing umbilical hernia. Lymphadenopathy: None. Pelvic viscera: The bladder, uterus, and adnexa are normal as visualized. Bilateral ovarian follicles are observed. Skeletal structures: No lytic or blastic lesions are seen. IMPRESSION: Findings are consistent with acute appendicitis. There is no evidence of abscess or perforation. Assessment: pt is a 37 debi old female who presents to ER with one day history RLQ pain with nausea and vomiting, CT scan- acute appendicitis, IMP: acute appendicitis Plan: I recommend to do laparoscopic appendectomy, possible open , D/W benefits , risks and alternatives of the procedure, the risks - infection, bleeding, abscess, injury bowel, pt understood, she agrees with the plan, I answered all questions,
[2017-08-28] MEDS ORDERED: LIDOCAINE HCL 1% 20 ML VIAL ONE (17:51)
[2017-08-28] MEDS ORDERED: BUPIVACAINE 0.5 % 5 MG/1 ML MPF 30ML VIAL ONE (17:51)
[2017-08-28] MEDS ORDERED: HYDROmorphone INJ 1 MG/ML SYR IV PRN ×2 (18:15→19:30)
[2017-08-28] MEDS ORDERED: ONDANSETRON INJ 2 MG/ML 2 ML VIAL IV PRN ×2 (18:15→19:30)
[2017-08-28] MEDS ORDERED: ATROPINE SULFATE 0.1 MG/ML 5ML SYR IV PRN (18:15)
[2017-08-28] MEDS ORDERED: EpHEDrine SULFATE INJ 50 MG/ML AMP IV PRN (18:15)
[2017-08-28] MEDS ORDERED: CEFOXITIN IV 2,000 MG in SYRINGE 11 ML IV SCH (18:15)
[2017-08-28] MEDS ORDERED: LABETALOL HCL IV 5 MG/ML 20ML IV PRN (18:15)
[2017-08-28] MEDS ORDERED: MEPERIDINE HCL 25 MG/ML CARP IV PRN (18:15)
--- NOTE | 2017-08-28 18:17 | History & Physical Bridge Note ---
H&P Re-Evaluation Bridge Note: I have examined the patient, reviewed the History & Physical and in the interval since the performance of the History & Physical I have noted the following changes of clinical significance: No changes noted
[2017-08-28] MEDS ORDERED: BACITRACIN OINT 15 GM TUBE ONE (19:19)
--- NOTE | 2017-08-28 19:23 | [facility] Post Operative Brief Note ---
Immediate Operative Summary Operative Date Aug 28, 2017. Pre-Operative Diagnosis Acute Appendicitis Post-Operative Diagnosis Acute Appendicitis Procedure(s) Performed Laparoscopic Appendectomy Surgeon Dr. Rollins Fish Roe Technician Surgeon(s) certified surgical assistant Estimated Blood Loss 10CC Findings acute appendicitis Fluids (cc crystalloids) 1200ml Specimens A. Appendix Drains none Anesthesia general Complication(s) None Disposition Recovery Room / PACU
[2017-08-28] MEDS ORDERED: ACETAMINOPHEN 325 MG TAB PO PRN (19:30)
[2017-08-28] MEDS: FENTANYL CITRATE INJ 50 MCG/1 ML 2 ML VIAL IV PRN ×2 (19:50→19:55)
--- NOTE | 2017-08-28 20:12 | Anesthesiology Progress Note ---
Anesthesia Post Op Note Date & Time Aug 28, 2017 at 20:11 Vital Signs Pain Intensity: 3 Vital Signs Past 12 Hours Date Time Temp Pulse Resp B/P (MAP) Pulse Ox O2 Delivery O2 Flow Rate FiO2 08/28/17 20:05 36.7 94 18 129/55 100 Nasal Cannula 2 08/28/17 19:55 89 18 128/69 100 Oxymask 10 08/28/17 19:45 104 18 132/75 100 Oxymask 10 08/28/17 19:35 37 84 16 118/66 100 Oxymask 10 08/28/17 18:15 79 16 119/73 (88) 100 Room Air 08/28/17 17:02 76 107/65 100 Room Air 08/28/17 15:13 80 116/69 100 Room Air 08/28/17 13:59 36.9 82 18 110/72 99 Room Air Notes Mental Status: alert / awake / arousable, participated in evaluation Pt Amnestic to Procedure: Yes Nausea / Vomiting: adequately controlled Pain: adequately controlled Airway Patency, RR, SpO2: stable & adequate BP & HR: stable & adequate Hydration State: stable & adequate Anesthetic Complications: no major complications apparent
--- NOTE | 2017-08-28 21:28 | OPERATIVE REPORT ---
DATE OF OPERATION: 08/28/2017 PREOPERATIVE DIAGNOSIS: Acute appendicitis. POSTOPERATIVE DIAGNOSIS: Same. PROCEDURE: Laparoscopic appendectomy. SURGEON: Nolan Rollins MD. ANESTHESIA: General. ESTIMATED BLOOD LOSS: About 10 mL. FINDINGS: Acute appendicitis. COMPLICATIONS: None. INDICATIONS FOR THE PROCEDURE: This is a 37-year-old female who presented to the ED with 1 day history of right lower quadrant pain. The patient had a CT scan confirming patient has acute appendicitis. The patient will be required to do laparoscopic appendectomy, possible open. I did talk to the patient about the benefit and risk, alternate procedure. I indicated the risks may include but not limited such as bleeding, infection, abscess, injury to bowel. The patient understands. She signed informed consent and I answered all questions. DETAILS OF PROCEDURE: We brought the patient to the OR, put the patient in the supine position. The patient received SCD on bilateral legs to prevent DVT. Also, the patient received 2 gram cefoxitin IV for prophylactic antibiotic. The patient received general anesthesia without difficulty. The abdomen was appropriately prepped in routine sterile fashion. After time out, I injected the local anesthesia by using 1% lidocaine mixed with 0.5% Marcaine just above umbilical, made a small incision just above umbilical, opened fascia and opened peritoneum under direct vision. I put a Prachi trocar in, connected to CO2 to create pneumoperitoneum. Flow rate is 6 liter per minute. Pressure not more than 14 mmHg. Once we got a nice pneumoperitoneum, we put a camera in to look around the abdomen showing normal finding on the stomach, small bowel, liver; however, the patient showed acute appendicitis. Appendix showed inflammation and swollen. Then we put another two 5 mm trocar on the left lower quadrant. Once all trocars were in, I mobilized the appendix and I used harmonic, appendiceal taken down and rechecked and no active bleeding. Then I used a 45 mm Endo-RADHA, transected on the base of the appendix, rechecked no active bleeding, no leak from the staple line. Then we removed the appendix through the catcher bag. Then we reinserted Prachi trocar in, connected to CO2 to create pneumoperitoneum again and looked around the abdomen, no active bleeding, no leak from the staple line. Then we removed all trocar under direct vision. No active bleeding from trocar sites. Once we removed the trocar, the pneumoperitoneum was released and now closed the umbilical incision, fascial layer by using #1 Vicryl [id number] x2, closed the subcutaneous layer by using 2-0 Vicryl interruptedly and closed skin by using 4-0 Vicryl continuous running, another two 5 mm trocar site closed skin only by using 4-0 Vicryl. We put the dressing on. The patient tolerated the procedure well. All instrument, needle and sponge count correct x2 at the end of case. The patient transferred to recovery room in stable condition. The specimen sent to pathology. After the procedure, I did talk to the patient and her about the OR finding and procedure we did, they understands. I attest to the content of the Intraoperative Record and any orders documented therein. Any exceptions are noted below. DEIRDRE
[2017-08-28] MEDS: D5W AND 1/2NSS + 20MEQ KCL 1,000 ML IV SCH (21:32)
[2017-08-28] MEDS ORDERED: CEFTRIAXONE SOD INJ 1 GM in DEXTROSE 5% ADD-VANTAGE 50ML 50 ML IV SCH (22:00)
[2017-08-28] MEDS: OXYCODONE/ACETAMINOPHEN 5-325 TAB PO PRN (23:25)
[2017-08-29 03:40] VITALS: BP 93/57; PULSE 67; TEMP 36.8; O2SAT 97
[2017-08-29 07:15] VITALS: BP 90/53; PULSE 79; TEMP 36.9; O2SAT 98
[2017-08-29] MEDS ORDERED: COUGH DROP (SUGAR FREE) LOZ 24 LOZ/1 BOX ONE (07:30)
[2017-08-29 07:35] LABS: BASO % 0.1 %; BASO ABS # 0.01 K/uL (0-0.2); COMPLETE YES; HEMATOCRIT 35.1 % (37-47); IG% 0.3 %; LYMPH % 14.3 %; LYMPH ABS # 1.07 K/uL (1.2-3.4); MEAN CORPUSCULAR HEMOGLOBIN 27.2 pg (25-34); MEAN CORPUSCULAR HGB CONC 31.6 g/dl (32-36); MEAN PLATELET VOLUME 9.9 fL (7.4-10.4); MONO % 8.2 %; NEUT % 77.1 %; PLATELET COUNT 239 K/uL (130-400); RED BLOOD COUNT 4.08 M/uL (4.2-5.4); WHITE BLOOD COUNT 7.48 K/uL (4.8-10.8)
[2017-08-29] MEDS: OXYCODONE/ACETAMINOPHEN 5-325 TAB PO PRN ×2 (07:41→11:28)
[2017-08-29 08:18] VITALS: BP 114/80; PULSE 70; TEMP 36.6; O2SAT 97
[2017-08-29 08:21] VITALS: O2SAT 97
--- NOTE | 2017-08-29 08:44 | Anesthesiology Progress Note ---
Anesthesia Post Op Note Date & Time Aug 29, 2017 at 08:43 Vital Signs Pain Intensity: 6.0 Vital Signs Past 12 Hours Date Time Temp Pulse Resp B/P (MAP) Pulse Ox O2 Delivery O2 Flow Rate FiO2 08/29/17 08:21 97 Room Air 08/29/17 08:18 36.6 70 18 114/80 (91) 97 Room Air 08/29/17 07:15 36.9 79 16 90/53 (65) 98 Room Air 08/29/17 03:40 36.8 67 15 93/57 (69) 97 Room Air 08/28/17 23:30 36.5 64 15 91/51 (64) 97 Room Air 08/28/17 23:25 Room Air 08/28/17 22:30 36.7 67 20 100/64 (76) 94 Room Air 08/28/17 21:53 100 Room Air 08/28/17 21:39 36.6 81 15 122/68 100 Room Air 08/28/17 21:30 36.3 76 15 102/62 (75) 98 Room Air 08/28/17 21:00 36.6 72 18 96/56 (69) 97 Room Air Notes Mental Status: alert / awake / arousable, participated in evaluation Pt Amnestic to Procedure: Yes Nausea / Vomiting: adequately controlled Pain: adequately controlled Airway Patency, RR, SpO2: stable & adequate BP & HR: stable & adequate Hydration State: stable & adequate Anesthetic Complications: no major complications apparent
--- NOTE | 2017-08-29 09:21 | Surgery Progress Note ---
Surgery Progress Note Date of Service Aug 29, 2017. Subjective Post OP Day: 1 (s/p laparoscopic appendectomy) + feeling well, + complaints (having some rlq pain and incisional pain, controlled), + diet (tolerated full liquids), No chest pain, No SOB, No nausea, No vomiting Objective Vital Signs: Date Time Temp Pulse Resp B/P (MAP) Pulse Ox O2 Delivery O2 Flow Rate FiO2 08/29/17 08:21 97 Room Air 08/29/17 08:18 36.6 70 18 114/80 (91) 97 Room Air 08/29/17 07:15 36.9 79 16 90/53 (65) 98 Room Air 08/29/17 03:40 36.8 67 15 93/57 (69) 97 Room Air 08/28/17 23:30 36.5 64 15 91/51 (64) 97 Room Air 08/28/17 23:25 Room Air 08/28/17 22:30 36.7 67 20 100/64 (76) 94 Room Air 08/28/17 21:53 100 Room Air 08/28/17 21:39 36.6 81 15 122/68 100 Room Air 08/28/17 21:30 36.3 76 15 102/62 (75) 98 Room Air 08/28/17 21:00 36.6 72 18 96/56 (69) 97 Room Air 08/28/17 20:30 36.6 81 15 122/68 (86) 100 Room Air 08/28/17 20:05 36.7 94 18 129/55 100 Nasal Cannula 2 08/28/17 19:55 89 18 128/69 100 Oxymask 10 08/28/17 19:45 104 18 132/75 100 Oxymask 10 08/28/17 19:35 37 84 16 118/66 100 Oxymask 10 08/28/17 18:15 79 16 119/73 (88) 100 Room Air 08/28/17 17:02 76 107/65 100 Room Air 08/28/17 15:13 80 116/69 100 Room Air 08/28/17 13:59 36.9 82 18 110/72 99 Room Air General Appearance: WD/WN, no apparent distress Head: normocephalic, atraumatic Neck: trachea midline Respiratory/Chest: no respiratory distress, no accessory muscle use Abdomen: non tender, non distended, soft, no organomegaly, no pulsatile mass Incision(s): clean, dry, intact (dressings clean and dry, incision not inspected) Laboratory Results: Results Past 24 Hours Test 08/28/17 14:20 08/28/17 15:20 08/29/17 07:23 Range/Units White Blood Count 9.46 7.48 4.8-10.8 K/uL Red Blood Count 4.54 4.08 4.2-5.4 M/uL Hemoglobin 12.7 11.1 12.0-16.0 g/dL Hematocrit 39.6 35.1 37-47 % Mean Corpuscular Volume 87.2 86.0 80-100 fL Mean Corpuscular Hemoglobin 28.0 27.2 25-34 pg Mean Corpuscular Hemoglobin Concent 32.1 31.6 32-36 g/dl Platelet Count 251 239 130-400 K/uL Mean Platelet Volume 9.9 9.9 7.4-10.4 fL Neutrophils (%) (Auto) 64.8 77.1 % Lymphocytes (%) (Auto) 24.8 14.3 % Monocytes (%) (Auto) 8.2 8.2 % Eosinophils (%) (Auto) 1.7 0.0 % Basophils (%) (Auto) 0.3 0.1 % Neutrophils # (Auto) 6.12 5.77 1.4-6.5 K/uL Lymphocytes # (Auto) 2.35 1.07 1.2-3.4 K/uL Monocytes # (Auto) 0.78 0.61 0.11-0.59 K/uL Eosinophils # (Auto) 0.16 0.00 0-0.5 K/uL Basophils # (Auto) 0.03 0.01 0-0.2 K/uL RDW Standard Deviation 46.8 45.5 36.4-46.3 fL RDW Coefficient of Variation 14.8 14.6 11.5-14.5 % Immature Granulocyte % (Auto) 0.2 0.3 % Immature Granulocyte # (Auto) 0.02 0.02 0.00-0.02 K/uL Sodium Level 134 136-145 mmol/L Potassium Level 3.9 3.5-5.1 mmol/L Chloride Level 101 98-107 mmol/L Carbon Dioxide Level 27 21-32 mmol/L Anion Gap 6.0 3-11 mmol/L Blood Urea Nitrogen 9 7-18 mg/dl Creatinine 0.69 0.60-1.20 mg/dl Est Creatinine Clear Calc Drug Dose 98.3 ml/min Estimated GFR () 130.7 Estimated GFR (Non- 112.8 BUN/Creatinine Ratio 13.6 10-20 Random Glucose 93 70-99 mg/dl Calcium Level 9.2 8.5-10.1 mg/dl Total Bilirubin 0.7 0.2-1 mg/dl Direct Bilirubin 0.1 0-0.2 mg/dl Aspartate Amino Transf (AST/SGOT) 7 15-37 U/L Alanine Aminotransferase (ALT/SGPT) 19 12-78 U/L Alkaline Phosphatase 69 45-117 U/L Total Protein 8.2 6.4-8.2 gm/dl Albumin 3.9 3.4-5.0 gm/dl Lipase 84 73-393 U/L Urine Color YELLOW Urine Appearance CLOUDY CLEAR Urine pH 6.0 4.5-7.5 Urine Specific [place] 1.012 1.000-1.030 Urine Protein NEG NEG Urine Glucose (UA) NEG NEG Urine Ketones NEG NEG Urine Occult Blood NEG NEG Urine Nitrite NEG NEG Urine Bilirubin NEG NEG Urine Urobilinogen NEG NEG Urine Leukocyte Esterase TRACE NEG Urine WBC (Auto) 1-5 0-5 /hpf Urine RBC (Auto) 0-4 0-4 /hpf Urine Hyaline Casts (Auto) 1-5 0-5 /lpf Urine Epithelial Cells (Auto) >30 0-5 /lpf Urine Bacteria (Auto) NEG NEG Assessment & Plan POD # 1 s/p laparoscopic appendectomy -vitals stable - No leukocytosis - pain controlled - tolerating full liquids Plan: Continue current pain management Encouraged OOB and ambulation Discharge home today Discharge instructions reviewed Rx for Percocet will be given as needed Dr. Rollins has seen and examined patient, agrees with above
[2017-08-29] MEDS: D5W AND 1/2NSS + 20MEQ KCL 1,000 ML IV SCH (09:30)
[2017-08-29] MEDS ORDERED: OXYC-57 PO (09:44)
--- NOTE | 2017-08-29 09:55 | Discharge Instructions ---
Discharge Instructions Date of Service Aug 29, 2017. Admission Reason for Admission: Acute Appendicitis Discharge Discharge Diagnosis / Problem: same Discharge Goals Goal(s): Decrease discomfort, Improve function Activity Recommendations Activity Limitations: as noted below No heavy lifting over 20 pounds for 3-4 weeks No strenuous activity until cleared by surgeon No submerging incisions underwater for 2 weeks (no bathing, swimming, or hot tubs) No driving while taking narcotic pain medication or until you are pain free . Instructions / Follow-Up Instructions / Follow-Up You may shower in 4 days, sponge bath and wash hair in meantime Keep dressings clean and dry for next 4 days and then shower and remove Keep steri strips on incisions for 7 days and then remove, they may fall off on their own that is okay Walking and light activity is encouraged Follow-up in surgical office in 1 week, please call office at [phone] to make an appointment You will be given Narcotic pain medication as needed for pain. It may make you drowsy. Only take if you are having moderate to severe pain. You may take extra strength Tylenol or Ibuprofen as needed for pain. Current Hospital Diet Patient's current hospital diet: Full Liquid Diet Discharge Diet Recommended Diet: Regular Diet Procedures Procedures Performed: Laparoscopic Appendectomy Pending Studies Studies pending at discharge: yes List of pending studies: Pathology appendix, to be reviewed at follow up visit Medical Emergencies . Who to Call and When: Medical Emergencies: If at any time you feel your situation is an emergency, please call 911 immediately. . Non-Emergent Contact Non-Emergency issues call your: Primary Care Provider, Surgeon Call Non-Emergent contact if: you have a fever, temperature is above 101, your pain is not controlled, your pain is worsening, your pain is unusual for you, wound has increased drainage, wound has increased redness, wound has increased pain . "Provider Documentation" section prepared by Yasemin Canales. . VTE Core Measure Inpt VTE Proph given/why not?: SCD's [place] Drug Monitoring Program Search Results: patient reviewed within database, no issues identified
[2017-08-29 10:47] VITALS: BP 114/80; PULSE 70; TEMP 36.6; O2SAT 97
--- NOTE | 2017-09-01 11:43 | Discharge Summary ---
Discharge Summary Dates Admission Date / Time: Aug 28, 2017 at 19:27 Discharge Date: Aug 29, 2017 Dispostion / Condition Discharge Disposition: Home Condition at Discharge: Good Principal Diagnosis (1) Acute appendicitis Problem List (1) Abdominal pain (2) Muscle spasm Consultations / Procedures Procedures: Laparoscopic Appendectomy Pending Studies / Follow-Up Appendix pathology- will be reviewed at follow up visit Medication Reconciliation New Medications: Oxycodone/Acetaminophen 5MG/325MG (Percocet 5MG/325MG) Tab 1 TABLET PO Q4H PRN for Pain, #18 TAB Continued Medications: Multiple Vitamin (Multi Vitamin) 1 Tab Tab 1 TAB PO DAILY Admission HPI Per the Admitting provider: The patient is a 37 year old female who presents to the Emergency Room with complaints of lower abdominal pain which started last evening. The patient states she had one episode of vomiting yesterday. She continues to be nauseated and complaining of pain in the lower abdomen which she rates at a 6 out of 10. The patient states her bowel movements have been normal. The patient denies any urinary symptoms of frequency, urgency, dysuria or hematuria. The patient denies any prior surgeries to her abdomen. The patient denies any fever, chest pain or shortness of breath. The patient denies any history of kidney stones or any family history of kidney stones. The patient last ate at 9:30 this morning. I saw pt at ER, I reviewed H/P with pt, pt is still have RLQ pain, pt denies fever, no diarrhea, Hospital Course (1) Acute appendicitis Patient was taken to operating room for laparoscopic appendectomy possible open. Patient tolerated procedure well without any complications and was transferred to recovery room in stable condition. Was then taken to medical/ surgical floor for post operative care. Patient's diet was advanced to full liquids in the morning on POD # 1 and was given PO Percocet as needed for pain with breakthrough Dilaudid, IV fluids, Post op IV antibiotic, and SCDs with activity as tolerated. Patient evaluated on morning of POD # 1 and was doing well. Tolerated full liquids, pain controlled with Percocet, and urinating without difficulty. Patient was discharged home on POD # 1 in stable condition. Discharge Instructions as given to patient Copies To Primary Care Provider: Tori Baker DO.
== END 2017-08-29 11:31 | disposition home or self-care (01) ==
LOC: C.EDB 13:56 → C.MSN 19:27 → ENRESERV 19:47
PROVIDERS: ADMIT Surgery; ATTEND Surgery
DX: K35.80 Unspecified acute appendicitis (principal)